=== PATIENT | female | born 1960 | race Caucasian/White ===

== ENCOUNTER 2020-05-23 14:02 | Outpatient (CLI) | payer OTHER, SELFPAY ==
--- NOTE | ~2020-05-23 | MM_ITS ---
EXAMINATION: MM screening [facility] BI w eva HISTORY: Screening TECHNIQUE: Craniocaudal and mediolateral oblique 3-D tomosynthesis images were obtained and synthetic 2-D images were generated. CAD analysis was submitted and interpreted. COMPARISON: Comparison to multiple prior studies sequentially, with oldest reviewed study dated 12/07. BREAST PARENCHYMAL COMPOSITION: There are scattered areas of fibroglandular density. FINDINGS: There is no evidence of suspicious mass, calcification, or architectural distortion to sugg est malignancy in either breast. There has been no suspicious interval change. IMPRESSION: 1. No mammographic evidence of malignancy. 2. Recommend routine screening mammography in one year. BI-RADS Category 1: Negative Reviewed, dictated and finalized at location A.
== END 2020-05-23 14:03 | disposition home or self-care (01) ==
LOC: ANHIMG 14:06
PROVIDERS: PCP Family Medicine; Visit Provider Obstetrics & Gynecology
DX: Z12.31 Encounter for screening mammogram for malignant neoplasm of breast (principal)
CPT/HCPCS: 77063; 77067

== ENCOUNTER 2021-05-29 11:16 | Outpatient (CLI) | payer OTHER, SELFPAY ==
--- NOTE | ~2021-05-29 | US_ITS ---
EXAMINATION: US soft tissue groin RT EXAM DATE: 05/29/2021 11:54 INDICATION: R10.31 - Right lower quadrant pain. TECHNIQUE: Multiple grayscale and Doppler images of the right groin were obtained (by a technologist who performed the scan) and subsequently reviewed. There is no prior study for comparison. FINDINGS: Right inguinal region was scanned. No wall defect/hernia was demonstrated. No other mass IMPRESSION: Unremarkable right inguinal region. Reviewed, dictated and finalized at location G.
== END 2021-05-29 11:17 | disposition home or self-care (01) ==
LOC: ANHIMG 11:18
PROVIDERS: PCP Family Medicine; Visit Provider Family Medicine
DX: R10.31 Right lower quadrant pain (principal)
CPT/HCPCS: 76882

== ENCOUNTER → 2021-06-18 10:52 | Outpatient (CLI) | payer OTHER, SELFPAY ==
--- NOTE | ~2021-06-18 | CT_ITS ---
EXAMINATION: CT abdomen pelvis w con INDICATION: Right lower quadrant pain TECHNIQUE: Computed tomographic images of the abdomen and pelvis were obtained after the administrati on of 100 cc of Omnipaque 350 intravenous contrast. The dose-length product (DLP) was 900.52 mGy-cm. Automated exposure control and iterative reconstruction technique were employed. COMPARISON: 02/29/2016 FINDINGS: Stable 3 mm nodules of the right lower lobe are consistent with old granulomatous disease. The heart size is normal. Punctate calcifications in otherwise normal appearing liver and spleen like ly represent healed granulomatous disease. The pancreas, gallbladder and adrenal glands are normal. H ypoattenuating lesions in the kidneys, measuring up to 4 mm on the left, are too small to characteriz e but likely represent cysts. No pathologically enlarged abdominal or pelvic lymph nodes are identifi ed. There is no free intraperitoneal gas or evidence of bowel obstruction. The appendix is normal. IMPRESSION: 1. No CT correlate for the patient's symptoms. Reviewed, dictated and finalized at location A.
[2021-06-18 11:34] LABS: Estimated Glomerular Filt Rate > 60
== END ==
PROVIDERS: PCP Family Medicine; Visit Provider Nurse Practitioner Family
DX: R10.31 Right lower quadrant pain (principal)
CPT/HCPCS: 74177; Q9967

== ENCOUNTER 2021-06-19 07:51 | Outpatient (CLI) | payer OTHER, SELFPAY ==
--- NOTE | ~2021-06-19 | MM_ITS ---
EXAMINATION: MM screening [facility] BI w eva HISTORY: Screening mammogram TECHNIQUE: Craniocaudal and mediolateral oblique 3-D tomosynthesis images were obtained and synthetic 2-D images were generated. CAD analysis was submitted and interpreted. COMPARISON: 05/23/2020, 01/25/2019, 01/19/2018 bilateral screening mammogram examinations BREAST PARENCHYMAL COMPOSITION: There are scattered areas of fibroglandular density. FINDINGS: There is no evidence of suspicious mass, calcification, or architectural distortion to sugg est malignancy in either breast. There has been no suspicious interval change. IMPRESSION: 1. No mammographic evidence of malignancy. 2. Recommend routine screening mammography in one year. BI-RADS Category 1: Negative Reviewed, dictated and finalized at location A.
== END 2021-06-19 07:52 | disposition home or self-care (01) ==
LOC: ANHIMG 07:53
PROVIDERS: PCP Family Medicine; Visit Provider Obstetrics & Gynecology
DX: Z12.31 Encounter for screening mammogram for malignant neoplasm of breast (principal)
CPT/HCPCS: 77063; 77067

== ENCOUNTER 2022-05-29 07:24 | Outpatient (CLI) | payer BC, SELFPAY ==
[2022-05-29 07:59] LABS: Alanine Aminotransferase 47 U/L (6-35); Albumin Level 4.6 g/dL (3.5-5.1); Alkaline Phosphatase 68 U/L (38-126); Aspartate Amino Transferase 36 U/L (14-36); Bilirubin,Total 0.7 mg/dL (0.2-1.3)
== END 2022-05-29 07:25 | disposition home or self-care (01) ==
LOC: ANHLAB 07:25
PROVIDERS: PCP Family Medicine; Visit Provider Nurse Practitioner Family
DX: R74.01 Elevation of levels of liver transaminase levels (principal)
CPT/HCPCS: 36415; 80076

== ENCOUNTER 2022-06-23 07:44 | Outpatient (CLI) | payer BC, OTHER, SELFPAY ==
--- NOTE | ~2022-06-23 | US_ITS ---
US abdomen limited DATE: 06/23/2022 08:24 INDICATION: Elevated serum liver enzymes TECHNIQUE: Region imaging of liver, pancreas, gallbladder COMPARISON: June 18, 2021 CT abdomen pelvis FINDINGS: Hepatic steatosis. No hepatic space-occupying mass lesion is evident. Normal hepatopedal po rtal venous flow direction. No gallbladder wall thickening or pericholecystic fluid collection. No gallstones are evident. Negati ve sonographic Bartlett's sign. The common bile duct measures 3 mm, normal. No pancreatic mass lesion or pancreatic duct dilatation is evident. IMPRESSION: Hepatic steatosis Reviewed, dictated and finalized at Location A. Reviewed, dictated and finalized at location B. IMPRESSION: Hepatic steatosis
== END 2022-06-23 07:45 | disposition home or self-care (01) ==
LOC: ANHIMG 07:52
PROVIDERS: PCP Family Medicine; Visit Provider Nurse Practitioner Family
DX: R74.8 Abnormal levels of other serum enzymes (principal); K76.0 Fatty (change of) liver, not elsewhere classified
CPT/HCPCS: 76705

== ENCOUNTER 2022-11-13 07:29 | Outpatient (CLI) | payer BC, OTHER, SELFPAY ==
--- NOTE | ~2022-11-13 | MM_ITS ---
EXAMINATION: MM screening [facility] BI w eva HISTORY: Screening mammogram TECHNIQUE: Craniocaudal and mediolateral oblique 3-D tomosynthesis images were obtained and synthetic 2-D images were generated. CAD analysis was submitted and interpreted. COMPARISON: 06/19/2021, 05/23/2020, 01/25/2019 bilateral screening mammogram examinations BREAST PARENCHYMAL COMPOSITION: There are scattered areas of fibroglandular density. FINDINGS: There is no evidence of suspicious mass, calcification, or architectural distortion to sugg est malignancy in either breast. There has been no suspicious interval change. IMPRESSION: 1. No mammographic evidence of malignancy. 2. Recommend routine screening mammography in one year. BI-RADS Category 1: Negative Reviewed, dictated and finalized at location A.
== END 2022-11-13 07:30 | disposition home or self-care (01) ==
PROVIDERS: PCP Family Medicine; Visit Provider Obstetrics & Gynecology
DX: Z12.31 Encounter for screening mammogram for malignant neoplasm of breast (principal)
CPT/HCPCS: 77063; 77067

== ENCOUNTER 2023-05-27 18:34 | Emergency (ER) | payer BC, OTHER, SELFPAY ==
--- NOTE | ~2023-05-27 | XR_ITS ---
EXAMINATION: XR ankle LT min 3V DATE: 05/27/2023 18:57 INDICATION: Left ankle pain TECHNIQUE: Anteroposterior, lateral, mortise, and additional oblique view of the ankle were obtained. COMPARISON: None. FINDINGS: There is lateral soft tissue swelling of ankle. Bone alignment is normal. There is no fract ure. 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 IMPRESSION: 1. No acute osseous abnormality. Reviewed, dictated and finalized at location F.
[2023-05-27 19:07] VITALS: BP 154/79; PULSE 88; RESP 16; TEMP 36.6; O2SAT 98
--- NOTE | 2023-05-27 20:01 | ED.LOWEXIN ---
HPI - Extremity Injury (Lower) General Chief Complaint: Extremity Injury, Lower Stated Complaint: twisted L ankle at work, limping more and more Time Seen by Provider: 05/27/23 19:23 History of Present Illness HPI Narrative: 62-year-old female presents to the emergency department for pain to her left ankle that started today. Patient states earlier today she stepped wrong in the grass and inverted her left ankle. States throughout the day as she has been walking on it has become increasingly more painful. She is reporting pain to her left lateral malleolus. Denies other injuries acquired. Related Data Allergies Allergy/AdvReac Type Severity Reaction Status Date / Time Penicillins Allergy Mild Rash Verified 05/18/23 07:51 latex Allergy Unknown Rash Verified 05/18/23 07:51 nirmatrelvir [From Paxlovid] AdvReac Intermediate Rash Verified 05/18/23 07:51 ritonavir [From Paxlovid] AdvReac Intermediate Rash Verified 05/18/23 07:51 Review of Systems Review of Systems: CONSTITUTIONAL: Denies fever, chills, or sweats. EYES: Denies visual changes, redness, or discharge. ENT: Denies rhinorrhea, congestion, sore throat, or otalgia. CARDIOVASCULAR: Denies chest pain, palpitations, or edema. RESPIRATORY: Denies cough or dyspnea. GASTROINTESTINAL: Denies abdominal pain, nausea, vomiting, or diarrhea. GENITOURINARY: Denies dysuria or hematuria. SKIN: Denies rash or itching. MUSCULOSKELETAL: See HPI NEUROLOGIC: Denies headache, numbness, or weakness. PSYCHIATRIC: Denies anxiety or depression. [facility] Past Medical History Medical History Anxiety and depression BMI 30.0-30.9,adult BMI 31.0-31.9,adult BMI 32.0-32.9,adult BMI 33.0-33.9,adult BMI 34.0-34.9,adult Bronchitis COVID-19 Dysthymia Ear pain Nasal congestion Right lower quadrant pain Screen for colon cancer Tonsillectomy planned Uncontrolled type 2 diabetes mellitus without complication, without long-term current use of insulin Surgical History Surgical History H/O: hysterectomy History of bladder surgery Social History Social History Smoking status: Former smoker Tobacco type: cigarettes Second hand tobacco smoke exposure: Yes Alcohol intake: current Substance use: never Substance use type: does not use Do You Feel Safe in your Home?: Yes Lack of Transportation: No Lack of Food: Never True Current Housing: I Have Housing Concerned About Future Housing: No Difficulty Paying Gas/Electric Bills: No Difficulty Paying for Meds: No Currently Unemployed: No Education: High School Diploma/GED Difficulty w/ Childcare or Family Care: No Living arrangements: with family Occupation/Education: occupation 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 HEAD: Normocephalic, atraumatic. NECK: Supple. CHEST: Clear to auscultation. No respiratory distress. HEART: Regular rate and rhythm. No murmur heard. Normal peripheral pulses. EXTREMITIES: LLE: Tenderness to the lateral malleolus, mild tenderness to the medial malleolus. No tenderness remainder of extremity. Negative squeeze. Negative Mcnair's. DP pulse 2 +. Sensation intact. Patient able to wiggle toes with minimal movement of the ankle secondary to pain. SKIN: Warm, dry, no rash. NEURO: No focal deficits. Alert and oriented x3 Course Vital Signs Vital signs: Vital Signs Temperature 97.9 F 05/27/23 19:07 Pulse Rate 88 05/27/23 19:07 Respiratory Rate 16 05/27/23 19:07 Blood Pressure 154/79 H 05/27/23 19:07 Pulse Oximetry 98 05/27/23 19:07 Oxygen Delivery Room Air 05/27/23 19:07 Temperature 97.9 F 05/27/23 19:
== END 2023-05-27 20:26 | disposition home or self-care (01) ==
LOC: ANHED 20:13
PROVIDERS: Emergency Provider Physician Assistant; PCP Family Medicine
DX: S93.492A Sprain of other ligament of left ankle, initial encounter (principal); E11.9 Type 2 diabetes mellitus without complications; Z86.16 Personal history of COVID-19; Z87.891 Personal history of nicotine dependence; Z90.710 Acquired absence of both cervix and uterus; Z79.85 Long-term (current) use of injectable non-insulin antidiabetic drugs; Z79.84 Long term (current) use of oral hypoglycemic drugs; X50.9XXA Other and unspecified overexertion or strenuous movements or postures, initial encounter
CPT/HCPCS: 73610; 99283

== ENCOUNTER 2023-12-16 07:51 | Outpatient (CLI) | payer BC, OTHER, SELFPAY ==
--- NOTE | ~2023-12-16 | MM_ITS ---
EXAMINATION: MM screening [facility] BI w eva HISTORY: Screening TECHNIQUE: Craniocaudal and mediolateral oblique 3-D tomosynthesis images were obtained and synthetic 2-D images were generated. CAD analysis was submitted and interpreted. COMPARISON: Comparison to multiple prior studies sequentially, with oldest reviewed study dated 11/2016. BREAST PARENCHYMAL COMPOSITION: Not Dense: The breasts are almost entirely fatty. FINDINGS: There is no evidence of suspicious mass, calcification, or architectural distortion to sugg est malignancy in either breast. There has been no suspicious interval change. IMPRESSION: 1. No mammographic evidence of malignancy. 2. Recommend routine screening mammography in one year. BI-RADS Category 1: Negative Reviewed, dictated and finalized at location B.
== END 2023-12-16 07:52 | disposition home or self-care (01) ==
LOC: ANHIMG 07:53
PROVIDERS: PCP Family Medicine; Visit Provider Obstetrics & Gynecology
DX: Z12.31 Encounter for screening mammogram for malignant neoplasm of breast (principal)
CPT/HCPCS: 77063; 77067

== ENCOUNTER 2024-04-12 15:27 | Outpatient (CLI) | payer BC, OTHER, SELFPAY ==
--- NOTE | ~2024-04-12 | XR_ITS ---
HISTORY: M25.551 - Pain in right hip COMPARISON: None TECHNIQUE: 2 views of the right hip. FINDINGS: No acute fracture or dislocation is identified. Superior lateral sclerosis of the right femoral acetabular joint space is present consistent with ost eoarthritis. Trace joint space narrowing detected within the right SI joint with sclerosis. Age-appropriate mineralization. IMPRESSION: Degenerative disease without acute fracture or dislocation Reviewed, dictated and finalized at location A. 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
--- NOTE | ~2024-04-12 | XR_ITS ---
XR lumbar spine 6V w bending 04/12/2024 16:03 Indication: Radiculopathy Procedure: 7 views lumbar spine including flexion/extension Comparison: No prior studies for comparison. Findings: There is facet hypertrophy at L3-4, L4-5 and L5-S1. There is grade 1 degenerative spondylol isthesis at L4-5 and L5-S1. Vertebral body heights are maintained. No significant alteration of align ment with flexion/extension. There is mild levocurvature of the lumbar spine. There are calcified gra nulomas of the spleen. Sacral foramen are symmetric. Impression: 1: Moderate lumbar spondylosis with grade 1 degenerative spondylolisthesis at L4-5 and L5-S1. Reviewed, dictated and finalized at location B. [employer] Impression: 1: Moderate lumbar spondylosis with grade 1 degenerative spondylolisthesis at L 4-5 and L5-S1.
== END 2024-04-12 15:28 | disposition home or self-care (01) ==
PROVIDERS: PCP Family Medicine; Visit Provider Family Medicine
DX: M16.11 Unilateral primary osteoarthritis, right hip (principal); M43.16 Spondylolisthesis, lumbar region; M43.17 Spondylolisthesis, lumbosacral region
CPT/HCPCS: 72114; 73502

== ENCOUNTER 2025-01-12 08:43 | Outpatient (CLI) | payer BC, OTHER, SELFPAY ==
--- NOTE | ~2025-01-12 | MM_ITS ---
EXAMINATION: MM screening [facility] BI w eva HISTORY: Screening TECHNIQUE: Craniocaudal and mediolateral oblique 3-D tomosynthesis images were obtained and synthetic 2-D images were generated. CAD analysis was submitted and interpreted. COMPARISON: Comparison to multiple prior studies sequentially, with oldest reviewed study dated , 05/23/2020 BREAST PARENCHYMAL COMPOSITION: The breasts are almost entirely fatty. FINDINGS: There is no evidence of suspicious mass, calcification, or architectural distortion to suggest malignancy in either breast. IMPRESSION: 1. No mammographic evidence of malignancy. 2. Recommend routine screening mammography in one year. BI-RADS Category 1: Negative Reviewed, dictated and finalized at location B. 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
== END 2025-01-12 08:44 | disposition home or self-care (01) ==
LOC: ANHFOHIMG 08:45
PROVIDERS: PCP Family Medicine; Visit Provider Obstetrics & Gynecology
DX: Z12.31 Encounter for screening mammogram for malignant neoplasm of breast (principal)
CPT/HCPCS: 77063; 77067